=== PATIENT | male | born 1985 | race Caucasian/White ===

== ENCOUNTER 2016-06-12 09:12 | Emergency (ER) | payer BC ==
[2016-06-12 09:24] VITALS: BP 126/71
--- NOTE | 2016-06-12 11:58 | UC ---
Eye Complaint HPI - HPI Summary HPI Summary: ONE DAY OF LEFT EYE ITCHINESS, YELLOW DISCHARGE, REDNESS. LAST WEEK HAD SINUS CONGESTION AND PRESSURE - History of Current Complaint Chief Complaint: UCEye Stated Complaint: EYE COMPLAINT Time Seen by Provider: 06/12/16 11:39 Hx Obtained From: Patient, Family/[employer] Onset/Duration: Sudden Onset, Lasting Hours, Still Present Timing: Hours Severity Initially: Moderate Severity Currently: Moderate Location of Injury: Conjunctiva Aggravating Factor(s): Contact Lens Alleviating Factor(s): Nothing Associated Signs And Symptoms: Positive: Drainage (Purulent). Negative: Photophobia, Drainage (Clear), Vision Impairment Bilateral, Vision Impairment Right, Vision Impairment Left, Fever, Swelling - Risk Factors Penetrating Injury Risk Factor: Negative Globe Rupture Risk Factors: Negative Acute Glaucoma Risk Factors: Negative Optic Artery Occlusion Risk Factors: Negative - Allergies/Home Medications Allergies/Adverse Reactions: Allergies Allergy/AdvReac Type Severity Reaction Status Date / Time Penicillin G Allergy Hives Verified 06/12/16 09:24 PMH/Surg Hx/FS Hx/Imm Hx Previously Healthy: Yes Endocrine History Of: Denies: Diabetes, Thyroid Disease Cardiovascular History Of: Denies: Cardiac Disorders, Hypertension Respiratory History Of: Denies: COPD, Asthma GI/ History Of: Denies: Ulcer - Surgical History Surgical History: None - Family History Known Family History: Positive: Other - CHILDREN HAD CONJUNCTIVITIS SEVERAL MONTHS AGO - Social History Occupation: Employed Full-time Lives: With Family Alcohol Use: Occasionally Substance Use Type: None Smoking Status (MU): Light Every Day Tobacco Smoker Amount Used/How Often: 1 pack per week Household Exposure Type: Cigarettes Review of Systems Constitutional: Negative Skin: Negative Eyes: Eye Redness ENT: Negative Respiratory: Negative Cardiovascular: Negative Gastrointestinal: Negative Genitourinary: Negative Motor: Negative Neurovascular: Negative Musculoskeletal: Negative Neurological: Negative Psychological: Negative All Other Systems Reviewed And Are Negative: Yes Physical Exam Triage Information Reviewed: Yes Appearance: Well-Appearing, No Pain Distress, Well-Nourished Vital Signs: Initial Vital Signs Temp 98.2 F 06/12/16 09:21 Pulse 58 06/12/16 09:21 Resp 16 06/12/16 09:21 BP 126/71 06/12/16 09:21 Pulse Ox 98 06/12/16 09:21 Eyes: Positive: Conjunctiva Inflamed, Discharge ENT Exam: Normal ENT: Positive: Normal ENT inspection, Hearing grossly normal, Pharynx normal, TMs normal Dental Exam: Normal Neck exam: Normal Neck: Positive: Supple, Nontender, No Lymphadenopathy Respiratory Exam: Normal Respiratory: Positive: Chest non-tender, Lungs clear, Normal breath sounds, No respiratory distress, No accessory muscle use Cardiovascular Exam: Normal Cardiovascular: Positive: RRR, No Murmur Abdominal Exam: Normal Musculoskeletal Exam: Normal Neurological Exam: Normal Psychological Exam: Normal Psychological: Positive: Normal Response To Family Skin Exam: Normal Eye Complaint Course/Dx - Differential Dx/Diagnosis Differential Diagnosis/HQI/PQRI: Conjunctivitis Provider Diagnoses: LEFT EYE CONJUNCTIVITIS Discharge - Discharge Plan Condition: Stable Disposition: HOME Prescriptions: Polymyx/Trimethoprim OPTH* [Polytrim OPHTH*] 1 drop LEFT EYE Q3H #1 btl Patient Education Materials: Conjunctivitis (ED) Forms: *Work Release Referrals: Asael Kamara MD [Primary Care Provider] -
== END 2016-06-12 12:01 | disposition home or self-care (01) ==
LOC: UCEAST 09:12
DX: H10.9 Unspecified conjunctivitis (principal); F17.210 Nicotine dependence, cigarettes, uncomplicated; Z88.0 Allergy status to penicillin
CPT/HCPCS: 99212; G0463